=== PATIENT | male | born 1935 | race Caucasian/White ===

== ENCOUNTER 2018-02-09 07:55 | Day surgery (SDC) | payer MEDICARE ==
[~2018-02-09 07:55] MED LIST: Lidocain 1% EPI 1:100,000 * 30 ML MDV ONE
[2018-02-09] MEDS ORDERED: ceFAZolin 2 GM PREMIX (*) 2 GM/50 ML BAG IVPB ONE (08:25)
[2018-02-09] MEDS ORDERED: Lidocain 1% EPI 1:100,000 * 30 ML MDV ONE (09:00)
[2018-02-09] MEDS ORDERED: Iohexol 180 (CONTRAST) 10 ML SDV IV ONE (09:08)
[2018-02-09 09:38] VITALS: BP 127/64
--- NOTE | 2018-02-09 09:42 | BRIEFOPN ---
Brief Operative Note - Surgery Procedures: Procedures Pre-OP Diagnoses: CLL Post-op Diagnosis: same Procedure: Insertion of powerport, needle in Surgeon: Adriano Asst: none Anethesia: local EBL: minimal IVF: none Specimen: none Drains: none 8Fr single lumen power port via R SCV
--- NOTE | 2018-02-09 10:11 | RAD ---
Indication: PowerPort placement. Single frontal view of the chest performed at 0945 hours was reviewed. No prior study is available. No mediastinal shift is noted. Heart is of normal size and configuration. Lung thorne appear clear. Central catheter is in place with the tip in the superior vena cava. IMPRESSION: NO ACTIVE CARDIOPULMONARY DISEASE IS NOTED.
--- NOTE | 2018-02-09 10:21 | RAD ---
INDICATION: chest port placement COMPARISONS: None relevant TECHNIQUE: Fluoroscopy was provided for a vascular access procedure. Total fluoroscopy time is: 95.2 seconds FINDINGS: Spot images demonstrate a right-sided chest port from a subclavian approach. The tip overlies the superior vena cava. IMPRESSION: FLUOROSCOPY WAS PROVIDED FOR A VASCULAR ACCESS PROCEDURE CPT II Codes: G9500
--- NOTE | 2018-02-10 01:54 | OP ---
CC: Dr. Singleton; Dr. Neal Bain * DATE OF OPERATION: 02/09/18 - [facility] DATE OF : 37. SURGEON: Ky Oh M.D. LAB[employer]ER [employer]SE: None. ANESTHESIA: Local. PRE-OP DIAGNOSIS: Chronic lymphocytic leukemia. POST-OP DIAGNOSIS: Chronic lymphocytic leukemia. OPERATIVE PROCEDURE: Insertion of PowerPort. DRAINS: 8-Norwegian PowerPort inserted through the right subclavian vein. DESCRIPTION OF PROCEDURE: The patient was identified in the preoperative area, marked, and was brought into the operating room and placed on the operating table in supine position. The preoperative antibiotics were given. The patient 's right upper chest and neck were prepped and draped in a standard surgical fashion. A time-out was performed. The right subclavian vein was accessed. A wire inserted under fluoroscopy in the appropriate site. We did have to manipulate this somewhat to get into the inferior vena cava. Next, an incision was made inferior to the wire and a pocket was created. The wire was then brought into this incision site. Next, the tract was dilated under fluoroscopy and we had some difficulty pushing in the dilator causing significant discomfort. At this point, we removed the wire and the dilator, and there was no evidence of bleeding. Next, we accessed the vein again with ease and the wire was inserted appropriately into the superior vena cava. This was then dilated under fluoroscopy. The 8- Norwegian PowerPort tubing was inserted, cut to size, and attached to the hub, which was sutured into the pocket with 0 Prolene sutures. The wound was then irrigated and we accessed the port. Blood was aspirated easily and we flushed this with heparinized saline. We then reapproximated the skin with 3-0 Vicryl sutures followed by 4-0 Monocryl and subcuticular sutures. Steri-Strips and sterile dressing were applied. The patient tolerated the procedure well and and transferred to the PACU in stable condition. [id number]/[facility] #: [id number] [facility]
== END 2018-02-09 10:06 | disposition home or self-care (01) ==
LOC: OR 07:55
PROVIDERS: ATTEND Surgery
DX: C91.10 Chronic lymphocytic leukemia of B-cell type not having achieved remission (principal); D59.1 Other autoimmune hemolytic anemias; R91.1 Solitary pulmonary nodule; Z85.820 Personal history of malignant melanoma of skin; E11.9 Type 2 diabetes mellitus without complications; E78.5 Hyperlipidemia, unspecified; I10 Essential (primary) hypertension
CPT/HCPCS: 71045; 76000; C1788; J0690; J1642

== ENCOUNTER 2018-06-21 14:19 | Inpatient (IN) | payer MEDICARE ==
[2018-06-21] MEDS ORDERED: NS 0.9% 1000 ML* 1,000 ML IV ONE ×2 (14:35→16:54)
--- NOTE | 2018-06-21 14:36 | ED ---
Complex/Multi-Sys Presentation - HPI Summary HPI Summary: This pt is an 83 y/o male, with hx of chronic lymphocytic leukemia, presenting to [facility] after CAT call for an unresponsive episode. Daughter reports the pt had his 5th round of chemo on (06/16/18). He then had hydration session on Wednesday 4 days ago. Pt notes that yesterday he began to have nausea and vomiting. Today he had 1 episode of emesis so he called [facility] this morning and was told to come for another hydration session. He came to the hospital and upon getting out of the car, pt was standing outside when he had an unresponsive episode. Per family members during this episode pt's eyes were wide open and pt was "frozen." Pt also reports abd pain (since chemo started) and low blood pressure today (101/58 this morning, his usual is around 130 systolic. He denies fever, chest pain, SOB, diarrhea, constipation. Pt states he has had normal bowel movements. His oncologist is Dr. Bain. Denies hx of cholecystectomy. - History Of Current Complaint Chief Complaint: EDWeakness Time Seen by Provider: 06/21/18 14:24 Hx Obtained From: Patient Onset/Duration: Sudden Onset, Resolved Timing: Minutes Severity Currently: Mild Aggravating Factor(s): nothing Alleviating Factor(s): nothing Associated Signs And Symptoms: Positive: Nausea, Vomiting, Abdominal Pain, Other - POS: unresponsive episode. NEG: constipation. Negative: Dizziness, SOB , Chest Pain, Diarrhea, Fever - Allergies/Home Medications Allergies/Adverse Reactions: Allergies Allergy/AdvReac Type Severity Reaction Status Date / Time No Known Allergies Allergy Verified 02/09/18 08:17 Home Medications: Home Medications Albuterol HFA INHALER* [Ventolin HFA Inhaler*] 2 puff INH Q4H PRN 06/21/18 [ History Confirmed 06/21/18] Aspirin EC TAB* [Ecotrin EC Low Dose 81 MG*] 81 mg PO DAILY 06/21/18 [History Confirmed 06/21/18] Atorvastatin* [Lipitor*] 40 mg PO DAILY 06/21/18 [History Confirmed 06/21/18] Folic Acid TAB* [Folvite TAB*] 1 mg PO DAILY 06/21/18 [History Confirmed ] Losartan TAB* [Cozaar TAB*] 50 mg PO DAILY 06/21/18 [History Confirmed 06/21/18] Multivitamins/Minerals TAB* [Theragran/minerals TAB*] 1 tab PO DAILY 06/21/18 [ History Confirmed 06/21/18] Omeprazole CAP* [Prilosec CAP* 20 MG] 20 mg PO DAILY 06/21/18 [History Confirmed 06/21/18] PMH/Surg Hx/FS Hx/Imm Hx Endocrine/Hematology History: Reports: Hx Blood Disorders - Chronic lymphocytic leukemia, high WBC Denies: Hx Diabetes Cardiovascular History: Reports: Hx Hypercholesterolemia, Hx Hypertension Denies: Hx Congestive Heart Failure Respiratory History: Reports: Hx Asthma, Hx Pleural Effusion, Other Respiratory Problems/Disorders - thoracentesis GI History: Reports: Other GI Disorders - constipation History: Reports: Hx Benign Prostatic Hyperplasia Denies: Hx Renal Disease Sensory History: Reports: Hx Cataracts - had sx Opthamlomology History: Reports: Hx Cataracts - had sx - Cancer History Cancer Type, Location and Year: 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 Chronic Lymphocytic Leukemia 2 to 3 years ago. - Surgical History Surgery Procedure, Year, and Place: nasal polyp removed 41yrs ago; cataract removed 2014. THORACENTESIS approx 2012 Infectious Disease History: No Infectious Disease History: Denies: Traveled Outside the [place] in Last 30 Days - Family History Known Family History: Positive: Cardiac Disease, Hypertension - Social History Alcohol Use: None Substance Use Type: Reports: None Smoking Status (MU): Never Smoked Tobacco Review of Systems Negative: Fever, Chills Negative: Erythema Negative: Sore Throat Cardiovascular: Other - POS: low blood pressure Negative: Chest Pain Negative: Shortness Of Breath, Cough Positive: Abdominal Pain, Vomiting, Nausea. Negative: Diarrhea, Other - constipation Negative: dysuria, hematuria Negative: Myalgia, Edema Negative: Rash Neurological: Other - NEGATIVE: dizziness. POSITIVE: unresponsive episode All Other Systems Reviewed And Are Negative: Yes Physical Exam - Summary Physical Exam Summary: Constitutional: Well-developed, Well-nourished, Alert. (-) Distressed Skin: Warm, Dry HENT: Normocephalic; Atraumatic. Dry mucous membranes. Eyes: Conjunctiva normal Neck: Musculoskeletal ROM normal neck. (-) JVD, (-) Stridor, (-) Tracheal deviation Cardio: Rhythm regular, rate normal, Heart sounds normal; Intact distal pulses; The pedal pulses are 2+ and symmetric. Radial pulses are 2+ and symmetric. (-) Murmur Pulmonary/Chest wall: Effort normal. (-) Respiratory distress, (-) Wheezes, (-) Rales Abd: Soft, right upper quadrant tenderness, (-) Distension, (-) Guarding, (-) Rebound Musculoskeletal: (-) Edema Lymph: (-) Cervical adenopathy Neuro: Alert, Oriented x3 Psych: Mood and affect Normal Triage Information Reviewed: Yes Vital Signs On Initial Exam: Initial Vitals Temp Pulse Resp BP Pulse Ox 97.2 F 90 19 99/49 97 06/21/18 14:21 06/21/18 14:21 06/21/18 14:21 06/21/18 14:21 06/21/18 14:21 Vital Signs Reviewed: Yes Diagnostics - Vital Signs Vital Signs Temp Pulse Resp BP Pulse Ox 06/21/18 14:21 97.2 F 90 19 99/49 97 - Laboratory Result Diagrams: 06/21/18 15:05 06/21/18 15:05 Lab Statement: Any lab studies that have been ordered have been reviewed, and results considered in the medical decision making process. - Ultrasound No standard instances Ultrasound Interpretation Completed By: Radiologist Summary of Ultrasound Findings: Gallbladder US IMPRESSION: THE HETEROGENEOUS GALLBLADDER APPEARS TO BE CONTRACTED AND EXHIBITING WALL THICKENING UP. TO 1 CM WITH PERICHOLECYSTIC FLUID. THERE IS POTENTIALLY ECHOGENIC MATERIAL IN THE GALLBLADDER FUNDUS WHICH COULD BE AIR. THE PATIENT IS EXHIBITING CLINICAL SIGNS OF. CHOLECYSTITIS FURTHER CHARACTERIZATION CAN BE MADE WITH CONTRAST-ENHANCED CT OF THE ABDOMEN AND PELVIS WITH ORAL CONTRAST. FINDINGS WERE DISCUSSED WITH DR. ROMERO OF THE TELEPHONE AT 1620 HOURS ON JUNE [id number]. - EKG 14:27 Cardiac Rate: NL - at 90 bpm EKG Rhythm: Sinus Rhythm Summary of EKG Findings: No STEMI. Re-Evaluation - Re-Evaluation First Eval Re-Evaluation Time: 15:24 Change: Unchanged Comment: Pt reports that about 5 minutes ago pt developed substernal chest pressure. He states he gets this from time to time and believes it is related to indigestion. Pt notes it usually gets better with antacids and his pain is already resolving. He reports he still has RUQ pain. Second Eval Re-Evaluation Time: 16:36 Comment: Pt reports no abdominal pain earlier today. Complex Multi-Symp Course/Dx Assessment/Plan: Pt is an 83 y/o male, with hx of chronic lymphocytic leukemia, who presents to the ED after CAT call for an unresponsive episode. Daughter reports the pt had his 5th round of chemo on (06/16/18). He then had hydration session on Wednesday 4 days ago. Pt notes that yesterday he began to have nausea and vomiting. Today he had 1 episode of emesis so he called [facility] this morning and was told to come for another hydration session. Pt came to the hospital and upon getting out of the car the pt was standing outside when he had an unresponsive episode where his eyes were wide open and pt was "frozen." Pt reports abd pain (since chemo started) and low blood pressure today (101/58 this morning, his usual is around 130 systolic. He denies fever, chest pain, SOB , diarrhea, constipation. Lab results show hematocrit of 35, platelet count of 65, BUN 27, creatinine of 2.29, lactic acid of 4.5, calcium of 6.8, total bilirubin of 4.2, troponin of 0.06, AST of 2912, ALT of 3759, total protein is 3.7, albumin is 2.5, globulin is 1.2. On re-evaluation pt developed substernal chest pressure. He states he gets this from time to time and believes it is related to indigestion. Pt notes it usually gets better with antacids and his pain is already resolving. He reports he still has RUQ pain. I discussed the case with Dr. Hook, oncologist, who accepted the pt for admission. Gallbladder US shows THE HETEROGENEOUS GALLBLADDER APPEARS TO BE CONTRACTED AND EXHIBITING WALL THICKENING UP. TO 1 CM WITH PERICHOLECYSTIC FLUID. THERE IS POTENTIALLY ECHOGENIC MATERIAL IN THE GALLBLADDER FUNDUS WHICH COULD BE AIR. THE PATIENT IS EXHIBITING CLINICAL SIGNS OF. CHOLECYSTITIS FURTHER CHARACTERIZATION CAN BE MADE WITH CONTRAST-ENHANCED CT OF THE ABDOMEN AND PELVIS WITH ORAL CONTRAST. I discussed pt care with Dr. Camacho, surgeon, who recommends medical management, IV Zosyn, and MRCP. I spoke with Dr. Harris, oncologist, who recommends to order MRCP today. - Diagnoses Provider Diagnoses: Syncope, Dehydration - Physician Notifications Discussed Care Of Patient With: Tripp Hook Time Discussed With Above Provider: 15:35 Instructed by Provider To: Other - I discussed the case with Dr. Hook, oncologist, who accepted the pt for admission. [16:36] I discussed pt care with Dr. Camacho, surgeon, who recommends medical management, IV Zosyn, and MRCP. [16 :52] I also spoke with Dr. Harris, oncologist, who recommends to order MRCP today. Discharge - Sign-Out/Discharge Documenting (check all that apply): Patient Departure - Admit to [facility] - Discharge Plan Condition: Stable Disposition: ADMITTED TO [facility] Referrals: Kyra Singleton MD [Primary Care Provider] - - Attestation Statements Document Initiated by Scribe: Yes Documenting Scribe: Vivien Lyman Provider For Whom Scribe is Documenting (Include Credential): Bhaskar Romero MD Scribe Attestation: Vivien Sol, scribed for Bhaskar Romero MD on 06/21/18 at 1709. Status of Scribe Document: Ready
[2018-06-21 15:24] LABS: Hematocrit 35 % (42-52); Hemoglobin 11.6 g/dl (14.0-18.0); Mean Corpuscular HGB Conc 33 g/dl (31-36); Mean Corpuscular Hemoglobin 30 pg (27-31); Mean Corpuscular Volume 90 fL (80-94); Red Cell Distribution Width 17 % (10.5-15); White Blood Count 4.4 10^3/ul (3.5-10.8)
[2018-06-21] MEDS ORDERED: Aspirin 81 mg CHEW TAB* 81 MG TAB.CHEW PO ONE (15:43)
[2018-06-21 15:46] LABS: Albumin 2.5 g/dL (3.2-5.2); Albumin/Globulin Ratio 2.1 (1-3); BUN/Creatinine Ratio 11.8 (8-20); Calcium 6.8 mg/dL (8.6-10.3); EGFR Non-African American 27.5 (>60); Globulin 1.2 g/dL (2-4); Magnesium 2.1 mg/dL (1.9-2.7); Potassium 3.8 mmol/L (3.5-5.0); Total Bilirubin 4.2 mg/dL (0.2-1.0); Total Protein 3.7 g/dL (6.4-8.9)
[2018-06-21] MEDS ORDERED: Gaviscon CHEW TAB* 1 TAB PO ONE (15:50)
[2018-06-21 16:04] LABS: TSH (Thyroid Stimulating Horm) 0.92 mcIU/mL (0.34-5.60)
[2018-06-21 16:12] LABS: ABS Basophils 0 10^3/ul (0-0.2); ABS Eosinophils 0 10^3/ul (0-0.6); ABS Lymphocytes 0 10^3/ul (1.0-4.8); ABS Monocytes 0.3 10^3/ul (0-0.8); ABS Nucleated RBC 0 10^3/ul; Eosinophil % 0.1 %; Lymphocyte % 0.6 %; Nucleated Red Blood Cells % 0.4; Platelet Count 65 10^3/ul (150-450)
[2018-06-21] MEDS ORDERED: metroNIDAZOLE IV 500 MG/100ML* 500 MG/100 ML BAG IVPB ONE (16:33)
[2018-06-21] MEDS ORDERED: Ciprofloxacin 400MG IVPREMIX(* 400 MG/200 ML BAG IVPB ONE (16:33)
[2018-06-21] MEDS ORDERED: Piperacillin/Tazobac ADVAN(*) 3.375 GM in NS 0.9% 100 ML* 100 ML IVPB ONE ×2 (16:39→18:14)
[2018-06-21] MEDS ORDERED: Albuterol HFA INHALER* 8 gm MDI INH PRN (18:22)
[2018-06-21] MEDS ORDERED: Zosyn per Pharmacy* NOTE FOLLOW UP SCH (19:00)
[2018-06-21] MEDS: NS 0.9% 1000 ML* 1,000 ML IV SCH (19:43)
[2018-06-21] MEDS: Mometasone/Formoter 200/5 MDI INH SCH (19:53)
[2018-06-21 19:54] LABS: Indirect Bilirubin 1.6 mg/dL (0.3-1.0)
[2018-06-21] MEDS ORDERED: LORazepam INJ* 2 MG/ML 1 ML VIAL IV PUSH ONE (22:00)
[2018-06-21] MEDS: NS 0.9% 1000 ML* 2,000 ML IV ONE ×2 (22:05→23:55)
[2018-06-21] MEDS: ZOSYN 3.375 GM Q8H per EXTENDED INFUSION IVPB SCH ×2 (22:11)
[2018-06-21 23:22] LABS: Hematocrit 34 % (42-52); Hemoglobin 11.3 g/dl (14.0-18.0); Mean Corpuscular HGB Conc 33 g/dl (31-36); Mean Corpuscular Hemoglobin 30 pg (27-31); Mean Corpuscular Volume 90 fL (80-94); Mean Platelet Volume 8.6 fL (7.4-10.4); Platelet Count 54 10^3/ul (150-450); Red Blood Count 3.82 10^6/ul (4.00-5.40); Red Cell Distribution Width 18 % (10.5-15); White Blood Count 3.4 10^3/ul (3.5-10.8)
[2018-06-21 23:23] LABS: Platelet Count 54 10^3/ul (150-450)
[2018-06-21 23:32] LABS: Activated Partial Thrombo Time 92.7 seconds (26.0-36.3); Fibrinogen 126.9 mg/dL (110.8-404.3)
[2018-06-21 23:59] LABS: INR 15.93 (0.77-1.02)
--- NOTE | 2018-06-22 00:29 | PN ---
Hospitalist Progress Note Date of Service: 06/21/18 code status full pt was admitted under onc service for abd pain. adult neurologist was called closed to 10 pm when he had an episode of change of mental status in mri. when this caption writer arrived, he regained his mental status but his sbp went down from 100 to 70s and he was tachycardiac ---> pt was found to have very elevated lft to close to 3000. he was given cipro and flagyl and changed to zosyn by onc. his abd sono showed wall thickening around the gallbladder with pericholecystic fluid ct of abd showed wall thickening at transverse colon site. pt has point tenderness around the periumbilical site. he was bolused with two liter of ns but sbp went down to 70s spoke with icu dr overnight ---> may need percutaneous drainage in am once ir is available. repeat lft came back still high but this caption writer thought he already plataued at 23 pm. his lactic acid still went upwards from 4.5 to 8 and he was found to have f/s 44 bicarb went down from 20 to 14 at 4 am stat abg ordered. spoke with gi conduit helper who will see pt in am. pt has elevated lft with alt close to 300 at the end of nov ---> he might have gallbladder dz with possible associated infection which leads to hypotension and shock liver/ shock kidney. pt has been able to maintain his mental status since adult neurologist. his ct scan repeat at 4 am did not show sig change compared to prior study yesterday vital 131/55 hr 111 rr 19 temp 96.6 ( on levophed 15 mcg) general in mild distress heart s1 s2 rrr but tachycardiac lung decreased b/s at base abd + point tenderness at umbilical area as well as llq otherwise no rebound and no guarding ext no pedal edema neuro aao times nonfocal a/p 1 shock liver with shock kdiney etiology prob related to his hypotension ---> hepatal renal syndrome will his hypotension more profound - ivf along with pressors support - gi consult called overnight - only has 135 cc urine outpt will call renal for this am to eval as well 2 abd pain with gallbladder wall thickening - ir eval in am for percutaneous drainage - repeat ct abd pending - on zosyn 3 elevated lactic acid this is prob related to problem 1/2 combined - abx along with pressors 4 worsening metabolic acidosis with hypoglycemia f/s q 1 hr - d5ns ordered 5 cll hx onc called twice reg pt overall prognosis 6 elevatd trop due to his shock liver/kidney - no cp moniter pt is aao times three and wants to have everything done for now but will see his family ( and daughter at 8 am ) ---> informed onc reg this as well total critical care time overnight is 2 hours
[2018-06-22 00:37] LABS: Albumin 2.5 g/dL (3.2-5.2); Albumin/Globulin Ratio 2.1 (1-3); BUN/Creatinine Ratio 10.5 (8-20); Calcium 7.4 mg/dL (8.6-10.3); EGFR Non-African American 21.2 (>60); Globulin 1.2 g/dL (2-4); Magnesium 2.4 mg/dL (1.9-2.7); Phosphorus 5.3 mg/dL (2.5-5.0); Potassium 4.7 mmol/L (3.5-5.0); Total Bilirubin 4.6 mg/dL (0.2-1.0); Total Protein 3.7 g/dL (6.4-8.9)
[2018-06-22 01:01] LABS: Burr Cells 2+
[2018-06-22 01:02] LABS: Schistocytes ABSENT
[2018-06-22 01:19] LABS: ABS Basophils 0 10^3/ul (0-0.2); ABS Eosinophils 0 10^3/ul (0-0.6); ABS Lymphocytes 0 10^3/ul (1.0-4.8); ABS Monocytes 0.2 10^3/ul (0-0.8); ABS Neutrophils 3.2 10^3/ul (1.5-7.7); ABS Nucleated RBC 0 10^3/ul; Eosinophil % 0.1 %; Lymphocyte % 0.7 %; Nucleated Red Blood Cells % 0.3
[2018-06-22] MEDS ORDERED: NS 0.9% 1000 ML* 1,000 ML IV ONE (01:20)
[2018-06-22] MEDS: Norepinephrine VIAL* 4 MG in NS 0.9% 250 ML* 246 ML IV SCH ×5 (01:55→20:02)
[2018-06-22] MEDS: NS 0.9% 1000 ML* 1,000 ML IV SCH (02:42)
[2018-06-22 04:33] LABS: Hematocrit 36 % (42-52); Hemoglobin 11.6 g/dl (14.0-18.0); Mean Corpuscular HGB Conc 33 g/dl (31-36); Mean Corpuscular Hemoglobin 30 pg (27-31); Mean Corpuscular Volume 91 fL (80-94); Mean Platelet Volume 8.5 fL (7.4-10.4); Platelet Count 51 10^3/ul (150-450); Red Cell Distribution Width 18 % (10.5-15); White Blood Count 3.8 10^3/ul (3.5-10.8)
[2018-06-22 04:45] LABS: Albumin 2.4 g/dL (3.2-5.2); BUN/Creatinine Ratio 9.8 (8-20); Calcium 6.8 mg/dL (8.6-10.3); EGFR Non-African American 19.6 (>60); Globulin 1.2 g/dL (2-4); Magnesium 2.2 mg/dL (1.9-2.7); Phosphorus 5.7 mg/dL (2.5-5.0); Potassium 4.3 mmol/L (3.5-5.0); Total Bilirubin 4.6 mg/dL (0.2-1.0); Total Protein 3.6 g/dL (6.4-8.9)
[2018-06-22 04:46] LABS: INR 17.91 (0.77-1.02)
[2018-06-22] MEDS ORDERED: Dextrose 50% Syringe 50 ML* 25 GM/50 ML SYRINGE ONE (04:48)
[2018-06-22 05:01] LABS: Immature Granulocytes 6 % (0-9); Lymphocytes % 2 %; Metamyelocytes % 1 % (0-2); Monocytes % 3 %; Neutrophil % 89 %
[2018-06-22 05:02] LABS: Burr Cells 2+
[2018-06-22 05:04] LABS: ABS Lymphocytes 0.1 10^3/ul (1.0-4.8); ABS Monocytes 0.1 10^3/ul (0-0.8); ABS Neutrophils 3.6 10^3/ul (1.5-7.7)
[2018-06-22] MEDS ORDERED: NS 0.9% 1000 ML* 500 ML IV ONE (05:09)
[2018-06-22] MEDS: D5NS 0.9% 1000 ML BAG* 1,000 ML IV SCH ×2 (05:19→19:04)
[2018-06-22] MEDS ORDERED: Dextrose 50% Syringe 50 ML* 25 GM/50 ML SYRINGE IV PUSH ONE (05:30)
[2018-06-22 05:39] LABS: Urine Appearance Cloudy; Urine Bacteria Absent (Absent); Urine Bilirubin Negative (Negative); Urine Blood 1+ (Negative); Urine Color Amber; Urine Glucose Negative (Negative); Urine Ketones Negative (Negative); Urine Nitrite Negative (Negative); Urine Protein 1+(30 mg/dL) (Negative); Urine Red Blood Cell Trace(0-2/hpf) (Absent); Urine Specific Gravity 1.016 (1.010-1.030); Urine Urobilinogen Negative (Negative); Urine White Blood Cell Trace(0-5/hpf) (Absent)
[2018-06-22] MEDS: ZOSYN 3.375 GM Q8H per EXTENDED INFUSION IVPB SCH ×2 (06:22)
[2018-06-22] MEDS ORDERED: Phytonadione IV (Adult)* 10 MG in NS 0.9% 50 ML* 50 ML IV ONE (06:56)
[2018-06-22] MEDS: Hydrocortisone INJ* 100 MG VIAL IV SCH ×3 (07:46→19:04)
--- NOTE | 2018-06-22 07:55 | CONSULT ---
Consult Consult: PCCM Consult CC: liver failure HPI: 83M with htn, hld, asthma, bph, CLL with recent chemotherapy with bendamustine/rituximab presents with weakness. The patient was found to have abnormal lfts in the thousands range. He was admitted to the floor and a rapid response was called for ams and hypotension. The patient was transferred to the ICU. He was started on abx and iv fluids. He reports some abdmominal discomfort and had nausea prior to admission. The patient denies fever or chills. A escoto was placed with minimal urine output. Lactate was progressively increasing. His INR increased to 18 and he became hypoglycemic. He was placed on levophed for bp support. ROS - as per HPI PMHx - htn, hld, asthma, bph, cll PSHx - nasal polypectomy, cataract, thoracentesis All - nkda SocHX - no drugs, etoh, tobacco FamHx - htn, heart disease PE VS Vital Signs: Temp Pulse Resp BP Pulse Ox 97.2 F 109 19 104/64 95 06/22/18 07:30 06/22/18 07:30 06/22/18 07:30 06/22/18 07:30 06/22/18 07:30 Gen - NAD Heent - ncat, eomi, perrl neck - no jvd, no thyromegaly cv - s1/s2, tachy lungs - cta, dec bs at bases abd - soft, tenderness to deep palpation ext - no cce neuro - non-focal Labs Laboratory Results - last 24 hr 06/21/18 06/21/18 06/21/18 15:05 15:05 15:05 WBC 4.4 RBC 3.90 L Hgb 11.6 L Hct 35 L MCV 90 MCH 30 MCHC 33 RDW 17 H Plt Count 65 L MPV 9.0 Neut % (Auto) 92.5 Lymph % (Auto) 0.6 [place] % (Auto) 6.3 Eos % (Auto) 0.1 Baso % (Auto) 0.5 Absolute Neuts (auto) 4.0 Absolute Lymphs (auto) 0 L Absolute Monos (auto) 0.3 Absolute Eos (auto) 0 Absolute Basos (auto) 0 Absolute Nucleated RBC 0 Immature Gran % Neutrophils % Band Neutrophils % Lymphocytes % Monocytes % Metamyelocytes % Nucleated RBC % 0.4 Toxic Granulation Normal RBC Morphology [place] Cells Elliptocytes 1+ Acanthocytes (Spur) 3+ Schistocytes INR (Anticoag Therapy) APTT Fibrinogen D-Dimer, Quantitative ABG pH ABG pCO2 ABG pO2 ABG HCO3 ABG O2 Saturation ABG Base Excess Sodium 136 Potassium 3.8 Chloride 104 Carbon Dioxide 20 L Anion Gap 12 H BUN 27 H Creatinine 2.29 H Est GFR ( Amer) 33.3 Est GFR (Non-Af Amer) 27.5 BUN/Creatinine Ratio 11.8 Glucose 105 H POC Glucose (mg/dL) Lactic Acid Calcium 6.8 L Phosphorus Magnesium 2.1 Total Bilirubin 4.20 H Direct Bilirubin 2.60 H Indirect Bilirubin 1.60 H AST 2912 H ALT 3759 H Alkaline Phosphatase 132 H Total Creatine Kinase Troponin I 0.06 H* Total Protein 3.7 L Albumin 2.5 L Globulin 1.2 L Albumin/Globulin Ratio 2.1 Amylase 107 H Lipase 111 H TSH 0.92 Urine Color Urine Appearance Urine pH Ur Specific [place] Urine Protein Urine Ketones Urine Blood Urine Nitrate Urine Bilirubin Urine Urobilinogen Ur Leukocyte Esterase Urine WBC (Auto) Urine RBC (Auto) Urine Bacteria Urine Glucose Blood Type B Positive Antibody Screen Negative Crossmatch See Detail 06/21/18 06/21/18 06/21/18 16:10 18:38 20:48 WBC RBC Hgb Hct MCV MCH MCHC RDW Plt Count MPV Neut % (Auto) Lymph % (Auto) [place] % (Auto) Eos % (Auto) Baso % (Auto) Absolute Neuts (auto) Absolute Lymphs (auto) Absolute Monos (auto) Absolute Eos (auto) Absolute Basos (auto) Absolute Nucleated RBC Immature Gran % Neutrophils % Band Neutrophils % Lymphocytes % Monocytes % Metamyelocytes % Nucleated RBC % Toxic Granulation Normal RBC Morphology [place] Cells Elliptocytes Acanthocytes (Spur) Schistocytes INR (Anticoag Therapy) APTT Fibrinogen D-Dimer, Quantitative ABG pH ABG pCO2 ABG pO2 ABG HCO3 ABG O2 Saturation ABG Base Excess Sodium Potassium Chloride Carbon Dioxide Anion Gap BUN Creatinine Est GFR ( Amer) Est GFR (Non-Af Amer) BUN/Creatinine Ratio Glucose POC Glucose (mg/dL) Lactic Acid 4.5 H* 5.0 H* Calcium Phosphorus Magnesium Total Bilirubin Direct Bilirubin Indirect Bilirubin AST ALT Alkaline Phosphatase Total Creatine Kinase Troponin I 0.08 H* Total Protein Albumin Globulin Albumin/Globulin Ratio Amylase Lipase TSH Urine Color Urine Appearance Urine pH Ur Specific [place] Urine Protein Urine Ketones Urine Blood Urine Nitrate Urine Bilirubin Urine Urobilinogen Ur Leukocyte Esterase Urine WBC (Auto) Urine RBC (Auto) Urine Bacteria Urine Glucose Blood Type Antibody Screen Crossmatch 06/21/18 06/21/18 06/21/18 23:00 23:00 23:00 WBC 3.4 L RBC 3.82 L Hgb 11.3 L Hct 34 L MCV 90 MCH 30 MCHC 33 RDW 18 H Plt Count 54 L 54 L MPV 8.6 Neut % (Auto) 92.8 Lymph % (Auto) 0.7 [place] % (Auto) 6.1 Eos % (Auto) 0.1 Baso % (Auto) 0.3 Absolute Neuts (auto) 3.2 Absolute Lymphs (auto) 0 L Absolute Monos (auto) 0.2 Absolute Eos (auto) 0 Absolute Basos (auto) 0 Absolute Nucleated RBC 0 Immature Gran % Neutrophils % Band Neutrophils % Lymphocytes % Monocytes % Metamyelocytes % Nucleated RBC % 0.3 Toxic Granulation Normal RBC Morphology [place] Cells 2+ Elliptocytes 1+ Acanthocytes (Spur) Schistocytes Absent INR (Anticoag Therapy) 15.93 H* APTT 92.7 H Fibrinogen 126.9 D-Dimer, Quantitative 965 H ABG pH ABG pCO2 ABG pO2 ABG HCO3 ABG O2 Saturation ABG Base Excess Sodium 133 L Potassium 4.7 Chloride 100 L Carbon Dioxide 17 L Anion Gap 16 H BUN 30 H Creatinine 2.87 H Est GFR ( Amer) 25.6 Est GFR (Non-Af Amer) 21.2 BUN/Creatinine Ratio 10.5 Glucose 80 POC Glucose (mg/dL) Lactic Acid Calcium 7.4 L Phosphorus 5.3 H Magnesium 2.4 Total Bilirubin 4.60 H Direct Bilirubin Indirect Bilirubin AST 2943 H ALT 3789 H Alkaline Phosphatase 159 H Total Creatine Kinase 300 H Troponin I 0.13 H* Total Protein 3.7 L Albumin 2.5 L Globulin 1.2 L Albumin/Globulin Ratio 2.1 Amylase 121 H Lipase 118 H TSH Urine Color Urine Appearance Urine pH Ur Specific [place] Urine Protein Urine Ketones Urine Blood Urine Nitrate Urine Bilirubin Urine Urobilinogen Ur Leukocyte Esterase Urine WBC (Auto) Urine RBC (Auto) Urine Bacteria Urine Glucose Blood Type Antibody Screen Crossmatch 06/21/18 06/22/18 06/22/18 23:00 04:12 04:12 WBC 3.8 RBC 3.90 L Hgb 11.6 L Hct 36 L MCV 91 MCH 30 MCHC 33 RDW 18 H Plt Count 51 L MPV 8.5 Neut % (Auto) Not Reportable Lymph % (Auto) Not Reportable [place] % (Auto) Not Reportable Eos % (Auto) Not Reportable Baso % (Auto) Not Reportable Absolute Neuts (auto) 3.6 Absolute Lymphs (auto) 0.1 L Absolute Monos (auto) 0.1 Absolute Eos (auto) Not Reportable Absolute Basos (auto) Not Reportable Absolute Nucleated RBC Not Reportable Immature Gran % 6 Neutrophils % 89 Band Neutrophils % 5 Lymphocytes % 2 Monocytes % 3 Metamyelocytes % 1 Nucleated RBC % Not Reportable Toxic Granulation 1+ Normal RBC Morphology Not Reportable [place] Cells 2+ Elliptocytes Acanthocytes (Spur) Schistocytes INR (Anticoag Therapy) APTT Fibrinogen D-Dimer, Quantitative ABG pH ABG pCO2 ABG pO2 ABG HCO3 ABG O2 Saturation ABG Base Excess Sodium 134 L Potassium 4.3 Chloride 104 Carbon Dioxide 14 L* Anion Gap 16 H BUN 30 H Creatinine 3.07 H Est GFR ( Amer) 23.7 Est GFR (Non-Af Amer) 19.6 BUN/Creatinine Ratio 9.8 Glucose 44 L* POC Glucose (mg/dL) Lactic Acid 6.4 H* Calcium 6.8 L Phosphorus 5.7 H Magnesium 2.2 Total Bilirubin 4.60 H Direct Bilirubin Indirect Bilirubin AST 2804 H ALT 3627 H Alkaline Phosphatase 162 H Total Creatine Kinase Troponin I 0.16 H* Total Protein 3.6 L Albumin 2.4 L Globulin 1.2 L Albumin/Globulin Ratio 2.0 Amylase Lipase TSH Urine Color Urine Appearance Urine pH Ur Specific [place] Urine Protein Urine Ketones Urine Blood Urine Nitrate Urine Bilirubin Urine Urobilinogen Ur Leukocyte Esterase Urine WBC (Auto) Urine RBC (Auto) Urine Bacteria Urine Glucose Blood Type Antibody Screen Crossmatch 06/22/18 06/22/18 06/22/18 04:12 04:12 05:10 WBC RBC Hgb Hct MCV MCH MCHC RDW Plt Count MPV Neut % (Auto) Lymph % (Auto) [place] % (Auto) Eos % (Auto) Baso % (Auto) Absolute Neuts (auto) Absolute Lymphs (auto) Absolute Monos (auto) Absolute Eos (auto) Absolute Basos (auto) Absolute Nucleated RBC Immature Gran % Neutrophils % Band Neutrophils % Lymphocytes % Monocytes % Metamyelocytes % Nucleated RBC % Toxic Granulation Normal RBC Morphology [place] Cells Elliptocytes Acanthocytes (Spur) Schistocytes INR (Anticoag Therapy) 17.91 H* APTT Fibrinogen D-Dimer, Quantitative ABG pH ABG pCO2 ABG pO2 ABG HCO3 ABG O2 Saturation ABG Base Excess Sodium Potassium Chloride Carbon Dioxide Anion Gap BUN Creatinine Est GFR ( Amer) Est GFR (Non-Af Amer) BUN/Creatinine Ratio Glucose POC Glucose (mg/dL) Lactic Acid 8.2 H* Calcium Phosphorus Magnesium Total Bilirubin Direct Bilirubin Indirect Bilirubin AST ALT Alkaline Phosphatase Total Creatine Kinase Troponin I Total Protein Albumin Globulin Albumin/Globulin Ratio Amylase Lipase TSH Urine Color [place] Urine Appearance Cloudy Urine pH 5.0 Ur Specific [place] 1.016 Urine Protein 1+(30 mg/dl) A Urine Ketones Negative Urine Blood 1+ A Urine Nitrate Negative Urine Bilirubin Negative Urine Urobilinogen Negative Ur Leukocyte Esterase Negative Urine WBC (Auto) Trace(0-5/hpf) Urine RBC (Auto) Trace(0-2/hpf) Urine Bacteria Absent Urine Glucose Negative Blood Type Antibody Screen Crossmatch 06/22/18 06/22/18 06/22/18 05:10 05:16 06:09 WBC RBC Hgb Hct MCV MCH MCHC RDW Plt Count MPV Neut % (Auto) Lymph % (Auto) [place] % (Auto) Eos % (Auto) Baso % (Auto) Absolute Neuts (auto) Absolute Lymphs (auto) Absolute Monos (auto) Absolute Eos (auto) Absolute Basos (auto) Absolute Nucleated RBC Immature Gran % Neutrophils % Band Neutrophils % Lymphocytes % Monocytes % Metamyelocytes % Nucleated RBC % Toxic Granulation Normal RBC Morphology [place] Cells Elliptocytes Acanthocytes (Spur) Schistocytes INR (Anticoag Therapy) APTT Fibrinogen D-Dimer, Quantitative ABG pH 7.28 L ABG pCO2 21 L ABG pO2 109 H ABG HCO3 13.2 L ABG O2 Saturation 98.9 H ABG Base Excess -15.0 L Sodium Potassium Chloride Carbon Dioxide Anion Gap BUN Creatinine Est GFR ( Amer) Est GFR (Non-Af Amer) BUN/Creatinine Ratio Glucose POC Glucose (mg/dL) 111 H 113 H Lactic Acid Calcium Phosphorus Magnesium Total Bilirubin Direct Bilirubin Indirect Bilirubin AST ALT Alkaline Phosphatase Total Creatine Kinase Troponin I Total Protein Albumin Globulin Albumin/Globulin Ratio Amylase Lipase TSH Urine Color Urine Appearance Urine pH Ur Specific [place] Urine Protein Urine Ketones Urine Blood Urine Nitrate Urine Bilirubin Urine Urobilinogen Ur Leukocyte Esterase Urine WBC (Auto) Urine RBC (Auto) Urine Bacteria Urine Glucose Blood Type Antibody Screen Crossmatch Imaging RUQ Sono 06/21/18 IMPRESSION: THE HETEROGENEOUS GALLBLADDER APPEARS TO BE CONTRACTED AND EXHIBITING WALL THICKENING UP TO 1 CM WITH PERICHOLECYSTIC FLUID. THERE IS POTENTIALLY ECHOGENIC MATERIAL IN THE GALLBLADDER FUNDUS WHICH COULD BE AIR. THE PATIENT IS EXHIBITING CLINICAL SIGNS OF CHOLECYSTITIS FURTHER CHARACTERIZATION CAN BE MADE WITH CONTRAST-ENHANCED CT OF THE ABDOMEN AND PELVIS WITH ORAL CONTRAST. CT abd/pel 06/21/18 IMPRESSION: Wall thickening of the transverse and ascending colon, findings concerning for colitis. Etiology infectious/inflammatory. Significant decrease in the abdominal lymphadenopathy. Most lymph nodes measuring less than [address] axis[address] abd/pel 06/21/18 IMPRESSION: 1. Minimal right pleural effusion and trace left pleural effusion which are new or increased since 06/21/2018. There is trace pericardial effusion which is similar to slightly increased. 2. Trace peritoneal ascites which is slightly increased. 3. Wall thickening of the gastric antrum and pylorus which is similar to the prior study and may reflect antral gastritis or PUD. 4. Nonspecific pancolitis, greatest proximally which is similar to the prior study. 5. Contracted gallbladder with wall thickening and mild internal density which may reflect sludge or small faint stones and is similar to the prior study. 6. Induration of the central mesentery and mesenteric root which is mildly increased overall. Findings may reflect increasing generalized anasarca or fluid overload. Impression 83M with htn, hld, asthma, bph, cll presenting with multiorgan system failure, shock 2/2 acute liver failure from chemo vs sepsis from cholecystitis Plan Neuro - pain control - not currently showing any signs of encephalopathy CV - shock, elevated troponin - 2/2 acute liver failure vs sepsis - iv hydration - levophed/vaso for bp support - elevated troponin 2/2 demand - check tte pulm - oxygenating ok id - septic shock - 2/2 cholecysititis? - afebrile and normal wbc but did receive recent chemo - cultures pending - on empiric zosyn - will discuss with IR about perc nohelia - serial lactates gi - shock liver - 2/2 drug reaction vs hypotension from sepsis - discussed with Dr. Smith from ICU at [facility], patient not a transplant candidate given age and underlying malignancy - no ICU beds at [facility] renal - acute renal failure - minimal urine output since arrival - consult called to nephrology - if needs HD would need transfer to Center that does CRRT - monitor lytes - strict i/o Heme - coagulopathy, CLL - 2/2 liver failure - PCC for INR reversal prior to per nohelia - CLL management per onc - serial CBC Endo - hypoglycemia - 2/2 liver failure - d5ns - fs q2h Lines - port, piv, escoto PPx - gi/dvt DNR/DNI Critical Care Time: 120 mins
[2018-06-22] MEDS ORDERED: Vasopressin* 100 UNITS in D5W 250 ML BAG* 245 ML IVPB SCH (08:00)
[2018-06-22] MEDS: Mometasone/Formoter 200/5 MDI INH SCH ×2 (08:26→19:11)
[2018-06-22 08:49] LABS: Hematocrit 41 % (42-52); Hemoglobin 13.2 g/dl (14.0-18.0); Mean Corpuscular HGB Conc 32 g/dl (31-36); Mean Corpuscular Hemoglobin 30 pg (27-31); Mean Corpuscular Volume 93 fL (80-94); Mean Platelet Volume 8.3 fL (7.4-10.4); Platelet Count 51 10^3/ul (150-450); Red Blood Count 4.45 10^6/ul (4.00-5.40); Red Cell Distribution Width 18 % (10.5-15); White Blood Count 5.2 10^3/ul (3.5-10.8)
[2018-06-22] MEDS ORDERED: Pantoprazole IV* 40 MG IV SCH (09:00)
[2018-06-22] MEDS ORDERED: Tamsulosin CAP* 0.4 MG PO SCH (09:00)
[2018-06-22 09:09] LABS: Albumin 2.7 g/dL (3.2-5.2); Albumin/Globulin Ratio 2.1 (1-3); BUN/Creatinine Ratio 9.4 (8-20); Calcium 6.8 mg/dL (8.6-10.3); EGFR Non-African American 18.8 (>60); Globulin 1.3 g/dL (2-4); Indirect Bilirubin 2.3 mg/dL (0.3-1.0); Magnesium 2.2 mg/dL (1.9-2.7); Phosphorus 5.8 mg/dL (2.5-5.0); Potassium 4.5 mmol/L (3.5-5.0); Total Bilirubin 5.8 mg/dL (0.2-1.0)
[2018-06-22 09:12] LABS: ABS Basophils 0 10^3/ul (0-0.2); ABS Eosinophils 0.1 10^3/ul (0-0.6); ABS Lymphocytes 0 10^3/ul (1.0-4.8); ABS Monocytes 0.5 10^3/ul (0-0.8); ABS Neutrophils 4.6 10^3/ul (1.5-7.7); ABS Nucleated RBC 0 10^3/ul; Eosinophil % 1.7 %; Lymphocyte % 0.4 %; Nucleated Red Blood Cells % 0.4
[2018-06-22] MEDS ORDERED: Gaviscon CHEW TAB* 1 TAB PO PRN (09:27)
[2018-06-22 11:05] LABS: INR 19.19 (0.77-1.02)
[2018-06-22] MEDS ORDERED: Albumin Human 25%* 25 GM/100 ML BTL IV SCH (12:00)
[2018-06-22] MEDS ORDERED: Benzocaine/Menthol LOZ* 1 LOZENGE PO PRN (12:19)
[2018-06-22 12:38] LABS: INR 2.19 (0.77-1.02)
[2018-06-22] MEDS ORDERED: Perflutren Lipid Microsphere* 3 ML VIAL ONE (13:28)
[2018-06-22] MEDS ORDERED: Sodium Bicarbonate 8.4%* 50 ML SYRINGE IV ONE (14:26)
--- NOTE | 2018-06-22 14:42 | ECHO ---
Patient: [facility] Rec#: [id number] : 1935 Date: 06/22/2018 Age: 83y Height: 170 cm / 66.9 in Weight: 84 kg / 185.1 lbs Sex: M BSA: 1.96 Room#: ICU 1 Admit Date#: 06/21/2018 Type: Inpatient Referring: Jae Martin DO Reading: Constance Krishna MD Marketing Reporting Analyst: Adelaide Palm RDCS,RDMS CC: Kyra Singleton MD Transthoracic Echocardiogram Indication: CP, Syncope BP: 105/52 HR: 92 Rhythm: NSR Findings History: HTN, HLD, CLL, chemotherapy Technical Comments: The study is technically limited due to poor acoustic windows. Left Ventricle: The left ventricular chamber size is normal. Mild concentric left ventricular hypertrophy is observed. Global left ventricular wall motion and contractility are within normal limits. The left ventricle appears hyperdynamic. The estimated ejection fraction is 60-65%. Normal left ventricular diastolic filling is observed. Left Atrium: The left atrial chamber size is normal. Right Ventricle: The right ventricular chamber size and systolic function are within normal limits. Right Atrium: The right atrial cavity size is normal. Aortic Valve: The aortic valve is trileaflet. The aortic valve leaflets are mildly thickened. Systolic excursion of the aortic valve is normal. There is no evidence of aortic regurgitation. There is no evidence of aortic stenosis. Mitral Valve: The mitral valve leaflets do not appear thickened. There is no evidence of mitral regurgitation. There is no evidence of mitral stenosis. Tricuspid Valve: The tricuspid valve leaflets are normal. There is no evidence of tricuspid valve regurgitation. Unable to estimate the right ventricular systolic pressure. Pulmonic Valve: The pulmonic valve structure is not well visualized. There is no evidence of pulmonic regurgitation. Pericardium: There is no significant pericardial effusion.Small amount of fluid adjacent to the right atrium at the base. Aorta: The aortic root appears normal. The aortic arch is not well visualized. Pulmonary Artery: The main pulmonary artery is not well visualized. Venous: The inferior vena cava is not visualized. Contrast: Definity was used to optimize study. A total of 2 ml was given by patient's RN. Conclusions Mild concentric left ventricular hypertrophy is observed. Global left ventricular wall motion within normal limits. The left ventricle appears hyperdynamic. The estimated ejection fraction is 60-65%. Normal left ventricular diastolic filling is observed. The right ventricular chamber size and systolic function are within normal limits. The aortic valve leaflets are mildly thickened with normal function. All valves show good function. There is no significant pericardial effusion, small amount of fluid adjacent to the right atrium at the base. No prior echo to compare. Measurements Name Value Normal Range RVIDd (AP) 2D 3.3 cm (0.9 - 2.6) RAd ISD 4CH 4.5 cm (3.4 - 4.9) RA (A4C)W 3.3 cm (2.9 - 4.6) IVSd (2D) 1.3 cm (0.6 - 1) LVPWd (2D) 1.3 cm (0.6 - 1) LVIDd (2D) 3.6 cm (3.6 - 5.4) LVIDs (2D) 2.4 cm - LV FS (2D) 34 % (25 - 45) Aortic Annulus 2.3 cm (1.4 - 2.6) Ao root diameter (2D) 3.2 cm (2.1 - 3.5) Ascending Ao 3 cm (2.1 - 3.4) LA dimension (AP) 2D 3.2 cm (2.3 - 3.8) LAd ISD 4CH 5.1 cm (2.9 - 5.3) LA ISD 4CH W 3.9 cm (2.5 - 4.5) Name Value Normal Range MV E-wave Vmax 0.5 m/sec - MV deceleration time 187 msec - MV A-wave Vmax 0.8 m/sec - MV E:A ratio 0.7 ratio - LV septal e' Vmax 0.06 m/sec - LV lateral e' Vmax 0.08 m/sec - LV E:e' septal ratio 8 ratio - LV E:e' lateral ratio 6 ratio - Name Value Normal Range RAP 8 mmHg - Name Value Normal Range PV Vmax 1 m/sec - PV peak gradient 4 mmHg -
[2018-06-22] MEDS ORDERED: ACETYLCYSTEINE IVPB ONE ×4 (15:00→20:00)
[2018-06-22] MEDS ORDERED: D5W IVPB ONE ×4 (15:00→20:00)
[2018-06-22] MEDS ORDERED: Vancomycin(*) 1,000 MG in NS 0.9% 250 ML* 250 ML IVPB ONE (15:01)
[2018-06-22] MEDS ORDERED: Morphine VIAL* 4 MG/ML VIAL (1 ml vial) IV PRN (15:01)
--- NOTE | 2018-06-22 15:21 | PN ---
Sepsis Event Evaluation Date of Evaluation: 06/22/18 Time of Evaluation: 12:00 Current Stage of Sepsis: Septic Shock Vital Signs - Last 12 Hours: Vital Signs - 12 hr Temp Pulse Resp BP Pulse Ox 06/22/18 15:01 99.0 F 97 28 97 06/22/18 15:00 99.0 F 98 19 113/56 96 06/22/18 14:45 99.1 F 104 29 108/68 93 06/22/18 14:40 99.1 F 97 26 109/66 94 06/22/18 14:30 99.0 F 97 27 117/56 94 06/22/18 14:24 99.0 F 97 22 99/63 94 06/22/18 14:15 99.0 F 95 24 101/52 95 06/22/18 14:01 99.0 F 96 4 95 06/22/18 14:00 99.0 F 96 15 127/64 94 06/22/18 13:45 98.8 F 93 23 120/60 95 06/22/18 13:30 98.8 F 94 13 121/53 94 06/22/18 13:15 98.6 F 90 12 121/62 96 06/22/18 13:01 98.4 F 88 22 94/61 96 06/22/18 13:00 98.4 F 14 06/22/18 12:45 98.4 F 87 18 114/54 96 06/22/18 12:30 98.4 F 87 20 103/60 96 06/22/18 12:16 98.2 F 88 16 99/56 97 06/22/18 12:01 98.2 F 87 21 96 06/22/18 12:00 98.2 F 83 19 105/52 96 06/22/18 11:45 98.2 F 88 16 102/65 96 06/22/18 11:30 98.1 F 89 22 115/57 97 06/22/18 11:15 98.1 F 90 20 103/70 96 06/22/18 11:01 98.1 F 94 21 120/54 96 06/22/18 11:00 98.1 F 93 17 96 06/22/18 10:46 98.1 F 90 23 118/46 96 06/22/18 10:30 97.9 F 93 24 132/67 96 12/12/18 10:15 97.9 F 89 18 111/58 98 06/22/18 10:01 97.7 F 91 24 98 18 10:00 97.7 F 91 22 133/77 98 18 09:46 97.7 F 92 16 128/67 99 12/18 09:30 97.5 F 91 27 136/68 99 12/18 09:15 97.5 F 91 22 145/68 98 18 09:01 97.5 F 88 24 98 18 09:00 97.5 F 91 21 124/75 99 18 08:46 97.3 F 91 20 127/65 99 18 08:15 97.3 F 104 22 98/54 98 06/22/18 08:01 97.3 F 104 18 99 06/22/18 08:00 97.3 F 102 25 87/49 98 06/22/18 07:45 97.3 F 107 17 82/43 99 06/22/18 07:30 97.2 F 109 19 104/64 95 06/22/18 07:15 97.0 F 108 19 97/55 99 06/22/18 07:01 97.0 F 108 16 98 06/22/18 07:00 97.0 F 104 20 121/60 99 06/22/18 06:46 96.8 F 107 16 114/88 100 06/22/18 06:30 96.8 F 110 19 149/69 99 18 06:15 96.8 F 109 20 135/63 99 06/22/18 06:01 96.6 F 112 29 141/67 98 06/22/18 06:00 112 21 98 18 05:45 113 22 136/60 98 18 05:30 111 19 131/55 99 18 05:15 107 20 132/57 100 18 05:05 106 18 105/51 99 06/22/18 05:00 102 16 98 18 04:58 15 06/22/18 04:56 102 14 86/36 96 18 04:05 100 22 86/43 97 06/22/18 04:02 99 21 96 06/22/18 04:01 98 31 60/35 95 06/22/18 04:00 97 20 63/34 93 06/22/18 03:46 97.6 F 06/22/18 03:45 104 16 71/51 97 06/22/18 03:30 113 26 82/43 96 Lactic Acid: 06/21/18 06/21/18 06/21/18 16:10 20:48 23:00 Lactic Acid 4.5 H* 5.0 H* 6.4 H* 06/22/18 06/22/18 04:12 08:31 Lactic Acid 8.2 H* 9.6 H* - Cardiopulmonary Exam Capillary Refill: < or = to 5 seconds Respiratory: Symmetrical Chest Expansion and Respiratory Effort, Clear to Auscultation Cardiovascular: NL Sounds; No Murmurs; No JVD, RRR, No Edema - Peripheral Pulse Exam Radial Pulses: Bilateral Normal Pedal Pulses: Bilateral Normal Posterior Tibial Pulse: Bilateral Normal Femoral Pulses: Bilateral Normal Popliteal Pulses: Bilateral Normal - Skin Exam Skin Exam: Diaphoretic - [place] Coma Scale Best Eye Response: 4 - Spontaneous Best Motor Response: 6 - Obeys Commands Best Verbal Response: 5 - Oriented Coma Scale Total: 15 Assess/Plan/Problems-Billing Assessment:
[2018-06-22 15:47] LABS: ABS Neutrophils 3.6 10^3/ul (1.5-7.7); Hematocrit 35 % (42-52); Hemoglobin 11.3 g/dl (14.0-18.0); INR 2.36 (0.77-1.02); Mean Corpuscular HGB Conc 32 g/dl (31-36); Mean Corpuscular Hemoglobin 29 pg (27-31); Mean Corpuscular Volume 91 fL (80-94); Mean Platelet Volume 8.2 fL (7.4-10.4); Platelet Count 39 10^3/ul (150-450); Red Blood Count 3.86 10^6/ul (4.00-5.40); Red Cell Distribution Width 17 % (10.5-15)
[2018-06-22 16:00] LABS: Albumin 2.5 g/dL (3.2-5.2); Albumin/Globulin Ratio 2.1 (1-3); BUN/Creatinine Ratio 8.6 (8-20); Calcium 6.5 mg/dL (8.6-10.3); EGFR Non-African American 16.3 (>60); Globulin 1.2 g/dL (2-4); Indirect Bilirubin 2.1 mg/dL (0.3-1.0); Magnesium 2.2 mg/dL (1.9-2.7); Phosphorus 5.9 mg/dL (2.5-5.0); Potassium 5.1 mmol/L (3.5-5.0); Total Bilirubin 5.4 mg/dL (0.2-1.0); Total Protein 3.7 g/dL (6.4-8.9)
[2018-06-22 17:13] LABS: ABS Basophils 0 10^3/ul (0-0.2); ABS Eosinophils 0.1 10^3/ul (0-0.6); ABS Lymphocytes 0 10^3/ul (1.0-4.8); ABS Monocytes 0.2 10^3/ul (0-0.8); ABS Nucleated RBC 0 10^3/ul; Eosinophil % 1.7 %; Lymphocyte % 0.8 %; Nucleated Red Blood Cells % 0.1
[2018-06-22] MEDS ORDERED: fentaNYL* 50 MCG/ML 2 ML VIAL (100 MCG VIAL) IV SLOW PU ONE (17:27)
[2018-06-22] MEDS ORDERED: fentaNYL* 50 MCG/ML 2 ML VIAL (100 MCG VIAL) ONE (17:28)
[2018-06-22] MEDS ORDERED: ZOSYN 3.375 GM Q12H per EXTENDED INFUSION IVPB SCH ×2 (18:00)
--- NOTE | 2018-06-22 18:01 | PN ---
Progress Note - Progress Note Date of Service: 06/22/18 Note: [facility] Follow Up Patient is s/p ultrasound guided gallbladder FNA by IR. Fluid obtained appeared to be bile without any obvious purulence making sepsis secondary to cholecystitis unlikely. Fluid was sent for culture. I updated the patient and his family at bedside about his overall poor prognosis given the severity of his liver and renal failure. They are discussing whether to withdraw care or to continue medical management. He is DNR/DNI. Case discussed with Dr. Bain via telephone. Additional Critical Care Time: 45 mins
--- NOTE | 2018-06-22 18:54 | PN ---
Progress Note - Progress Note Date of Service: 06/22/18 SOAP: Subjective: []He is not in pain. Answering questions. Nausea is better. Al Hydroxide/Mg Trisilicate (Gaviscon Chew Tab*) 1 tab.chew PO Q6H PRN PRN Reason: gerd Last Admin: 06/22/18 10:59 Dose: 1 tab.chew Albuterol (Ventolin Hfa Inhaler*) 2 puff INH Q4H PRN PRN Reason: SHORTNESS OF BREATH Hydrocortisone Sodium Succinate (Solu-Cortef*) 50 mg IV Q6H [facility] Last Admin: 06/22/18 14:36 Dose: 50 mg Norepinephrine Bitartrate 4 mg (/ Sodium Chloride) 250 mls @ 18.75 mls/hr IV Q12H [facility]; Protocol Last Admin: 06/22/18 14:45 Dose: Not Given Dextrose/Sodium Chloride (D5ns 0.9% 1000 Ml Bag*) 1,000 mls @ 100 mls/hr IV PER RATE [facility] Last Admin: 06/22/18 05:19 Dose: 100 mls/hr Vasopressin 100 units/ (Dextrose) 250 mls @ 6 mls/hr IVPB Q24H [facility] Last Admin: 06/22/18 08:05 Dose: 6 mls/hr Piperacillin Sod/Tazobactam (Sod 3.375 gm/ Sodium Chloride) 100 mls @ 25 mls/ hr IVPB Q12H [facility] Last Admin: 06/22/18 18:20 Dose: 25 mls/hr Albumin Human (Albumin Human 25%*) 25 gm in 100 mls @ 120 mls/hr IV Q8H [facility] Stop: 06/23/18 11:59 Last Admin: 06/22/18 14:35 Dose: 120 mls/hr Acetylcysteine 4,000 mg/ (Dextrose) 520 mls @ 125 mls/hr IVPB ONCE ONE Stop: 06/22/18 20:09 Last Admin: 06/22/18 17:00 Dose: 125 mls/hr Acetylcysteine 8,000 mg/ (Dextrose) 1,040 mls @ 62.5 mls/hr IVPB 2000 ONE Stop: 06/23/18 12:38 Mometasone Furoate/Formoterol Fumar (Dulera 200/5 Mdi*) 2 puff INH BID REDDY; Protocol Last Admin: 06/22/18 08:26 Dose: 2 puff Morphine Sulfate (Morphine Vial*) 1 mg IV Q2H PRN PRN Reason: PAIN Last Admin: 06/22/18 15:36 Dose: 1 mg Pantoprazole Sodium (Protonix Iv*) 40 mg IV DAILY REDDY Last Admin: 06/22/18 09:49 Dose: 40 mg Pharmacy Consult (Zosyn Per Pharmacy*) 1 note FOLLOW UP .ZOSYN PER PHARMACY [facility] Throat Lozenges (Chloraseptic Nadiya*) 1 nadiya PO Q6H PRN PRN Reason: SORE THROAT Objective: [] Vital Signs Temp Pulse Resp BP Pulse Ox 98.2 F 93 17 124/58 97 06/22/18 18:01 06/22/18 18:01 06/22/18 18:01 06/22/18 18:00 06/22/18 18:01 HEENT - scleral icterus High flow oxygen, CTA RRR S1S2 Abd distended but non tender, cannot feel liver edge Ext cool, no edema anuric Labs: Cr 3.6, increased LA 10.5, increased TBili 5.4, down slightly AST/ALT 2719/3475, down slightly GB drain, no puss. Assessment: []83 year old with fulminant liver failure likely second to bendamustine. He has concurrent ARF from HRS or hypotension. Now on dule presser support, steriods, and receiving FFP. Met with patient and family this am and tonight. Likely will from event, liver may not recover. He is stable at this time with intensive support. I think it is worth continuing support overnight is he remains stable. Agree with DNR DNI. If in morning liver function continues to decline the withdrawal of care is appropriate. Plan: []1. Liver. Continue supportive care tonight and will follow up with blood work in am. 2. Renal. - ATN from hypovolimic shock - Metabolic acidosis from ARF and CUSTODIAL. - No HD but stable at this time. 3. Pulm. High flow oxygen, fluid overload or ARDS 4. CV. Duel presser support, continue for time being, titrate to MAP 5. Neuro. Intact MS, oriented at this time 6. DNR DNI
--- NOTE | 2018-06-22 20:31 | CONS ---
NEPHROLOGY CONSULTATION REPORT: DATE OF CONSULT: 06/22/18 REQUESTING PROVIDER: Dr. Martin/vice president regulatory. CHIEF COMPLAINT: Feeling poorly, weakness, nausea, vomiting/acute renal failure. HISTORY OF PRESENT ILLNESS: An 83-year-old male with history of CLL, on bendamustine and rituximab treatment, who has completed 5 cycles so far, last chemo on 06/16/18/06/17/18, came into the hospital for evaluation of weakness, some lethargy and nausea. The patient also reported lack of appetite and had syncopal episode in the parking lot and was brought to the ER for evaluation. In the ER, the patient was noted to have extremely elevated liver function test , was noted to be hypotensive with initial blood pressures in the 70s with further serial blood pressures in the 60s, was admitted to the ICU and being stabilized on pressors. The patient has also received 6.5 L and IV fluids by this morning. The patient noted to be awake and alert and communicating, but continues to require pressor support at this time. With respect to his kidney, the patient does not have any known history of kidney disease. Baseline renal function significant for a creatinine of 1.0. The patient's initial creatinine on admission noted to be in the 2 range and has climbed up to a creatinine of 3 at this time. The patient's urine output has also decreased significantly and the patient has only made 5 cc in the last hour of evaluation this morning. The patient noted to have elevated lactate that is climbing. Interestingly, the patient did not have any fever at home. PAST MEDICAL HISTORY: 1. CLL 13q. Please refer to the Oncology notes for detailed description. 2. BPH. 3. Asthma. 4. Hyperlipidemia. 5. Hypertension. PAST SURGICAL HISTORY: 1. Nasal polypectomy. 2. Cataract. 3. Thoracentesis. MEDICATIONS: Medication list reviewed in detail: 1. The patient is on Zosyn 3.375 IV q.12. 2. Levophed currently at 15 mcg. 3. Morphine p.r.n. for pain. 4. Stress dose steroids hydrocortisone 50 IV q.6. FAMILY HISTORY: Hypertension and heart disease in the family. No known family history of kidney disease. SOCIAL HISTORY: The patient does not smoke or consume alcohol. No use of recreational drugs. REVIEW OF SYSTEMS: As described in the HPI, the patient reports some nausea, fatigue and some abdominal pain. Denies any chest pain, shortness of breath, or other complaints. A 14-point review of systems reviewed and others noted to be negative at this time. PHYSICAL EXAM: Vitals: Temperature 97.2, pulse 109, respirations 19, blood pressure 104/64 on pressors, pulse ox 95%. HEENT: NC/AT. Heart: S1, S2 present. Regular, but tachycardic at the time of exam. Lungs: Decreased breath sounds bilaterally. No crackles noted on exam. Abdomen: Soft, obese, tenderness to deep palpation diffusely. Extremities: Noted to have no edema. Neuro: Alert and oriented. No focal deficits. Gait not tested. DIAGNOSTIC STUDIES/LAB DATA: WBC 4.4, hemoglobin 16.6, hematocrit 35, platelets noted to be 65. Sodium 136, potassium 3.8, chloride 104, CO2 20, BUN 27, initial creatinine 2.29 increased to 3, lactic acid noted to be trending up and at 9.6 this morning. Imaging: The patient's gallbladder ultrasound and CT of the abdomen and pelvis has been reviewed. ASSESSMENT AND PLAN: An 83-year-old male with history of chronic lymphocytic leukemia with recent chemotherapy with bendamustine and Rituxan, here with possible septic shock and acute kidney injury and shocked liver. 1. Acute kidney injury. Likely etiology is acute tubular necrosis in the setting of hypoperfusion, ischemic acute tubular necrosis is most likely as the patient's blood pressure dropped to the 60s and 70s. The patient also noted to be in the injury phase of acute tubular necrosis with rising creatinine. The patient's urine output has also steadily decreased and the patient has only made 5 cc of urine in the last hour. Agree with supportive measures and pressors to keep his MAP above 65 to improve renal perfusion. The patient's renal function may worsen further before it improves as the patient continues to be in the injury phase of acute tubular necrosis. If the patient's renal function continues to decline before it improves, the patient may require renal replacement therapy in the next 72 hours. The patient does not have any emergent indications for dialysis. This morning, the patient's potassium noted to be in the 4 range; however, if the patient continues to make no urine, the patient may develop indications for dialysis. Unfortunately, the patient would not be able to tolerate routine hemodialysis on pressor support. The patient would need to be transferred to another center for CRRT/CVVH, will follow the patient closely with ICU team. 2. Metabolic acidosis secondary to lactic acidosis. This appears to be secondary to hypoperfusion. type B lactic acidosis secondary to the patient's chemotherapy is possible, but the patient has clearly been hypotensive and the lactate likely from hypoperfusion in the setting of shock. 3. The etiology of the patient's shock and shocked liver with significantly elevated LFTs, liver injury could possibly be from chemotherapy versus infection. Agree with broad-spectrum antibiotics per the ICU team and further treatment by Oncology. Also agree with products to stabilize his INR. The patient's INR noted to be 17 this morning and the patient has received vitamin K and Kcentra. A cholecystostomy tube to drain the gallbladder which could possibly be source of infection is also being evaluated. 4. We will follow closely with the ICU and oncology service. Thank you for giving me an opportunity to participate in caring for this patient. [id number]/[facility] #: [id number] JOANNA
--- NOTE | 2018-06-22 20:41 | CONS ---
GASTROENTEROLOGY CONSULT REPORT: DATE OF CONSULT: 06/22/18 REASON FOR CONSULT: Concern for liver failure. HISTORY OF PRESENT ILLNESS: Mr. Porter is an 83-year-old gentleman with a history of chronic lymphocytic leukemia, on chemotherapy with bendamustine and rituximab, who is admitted with hypotension and now concern for liver failure. Some history provided by the patient and the patient's . The remainder of history obtained from chart review. Mr. Porter had last round of chemotherapy on , 06/16/18. He was given IV hydration on Wednesday. It seems that earlier in the week he developed some nausea and vomiting. He also had an episode of being unresponsive to family members. Noted to have hypotension relative to his baseline. Taken to the ER for evaluation. In the ER, the patient on initial assessment was noted to have a blood pressure of 99/49. Apparently, his normal blood pressure is more in the 130 systolic range. Labs notable for a creatinine of 2.29, AST 2912, ALT 3759, bilirubin of 4.2, lactic acid of 4.5. He complained of right upper quadrant pain and an ultrasound demonstrated contracted gallbladder with wall thickening and pericholecystic fluid. Followup CT abdomen and pelvis demonstrated possible colitis. The patient was admitted. The patient was then planned for an MRCP; however, he developed acute hypotension and acute mental status change while down for the MRI. He was given IV fluids without significant improvement in the blood pressure. He was admitted to the ICU and started on vasopressin and Levophed. Overnight, labs have been quite significant for rising INR to 19.19! He was given Kcentra with improvement in the INR to the 2-3 range. He was noted to have rising enzymes with an ALT up to 3984 and an AST to 3147 and bilirubin up to 5.8 with 3.5 being direct. He also has a rising lactic acid, rising creatinine up to 3.6, and lactic acid of 10.5. He has been acidotic with a pH of 7.28 on an ABG and bicarb of 11. He has also had increased issues from a pulmonary standpoint and has been placed on nasal BiPAP. Repeat CT abdomen and pelvis was performed early this morning, which demonstrated minimal right pleural effusion and trace left pleural effusion. Trace peritoneal ascites noted, wall thickening of the gastric antrum and pylorus, as well as nonspecific pancolitis noted. REVIEW OF SYSTEMS: The patient reports feeling weak and fatigued. He is short of breath. He denies any confusion at present time. He does say that he has been having some diarrhea since this morning. PAST MEDICAL HISTORY: Notable for CLL, on chemotherapy. Also notable for hypertension, hyperlipidemia, asthma, and BPH. PAST SURGICAL HISTORY: Cataract surgery and nasal polypectomy. OUTPATIENT MEDICATIONS: Include: 1. Albuterol. 2. Aspirin. 3. Atorvastatin. 4. Budesonide and formoterol. 5. Folic acid. 6. Losartan. 7. Multivitamins. 8. Omeprazole. 9. Tamsulosin. 10. His chemotherapy regimen. FAMILY HISTORY: No known GI or liver disease. SOCIAL HISTORY: No drugs, alcohol, or tobacco. PHYSICAL EXAM: Vital Signs: 98.2; blood pressure 124/58, on pressors; heart rate 95; 97% on oxygen supplementation. Chronically ill-appearing gentleman, appears short of breath. HEENT: Mucous membranes moist. Cardiovascular: Tachycardic. Pulm: Moving decent air. Increased respiratory rate. Abdomen: Distended, but no significant tenderness. Extremities: No edema. Cool. Neuro: A and O x3. Does not appear to be overtly encephalopathic. DIAGNOSTIC STUDIES/LAB DATA: Labs reviewed in HPI. Most recent set of labs indicates a normal white count; hemoglobin of 11.3 and hematocrit of 35; platelet count dropping, now 39. INR was 19.19, now down to 2.36. ABG with a pH of 7.28. Sodium was 134, now 137; potassium 5.1; bicarb between 11 and 13; creatinine now up to 3.61; lactic acid now up to 10.5; phos is 5.9. Bilirubin 5.4 with a direct of 3.3; AST now 2719, which is down a bit from earlier; ALT is 3475; alk phos is 160. Troponin is elevated to 1.57. Albumin is low at 2.5. Imaging: CT abdomen and pelvis from 06/21/18 and 06/22/18 summarized in the HPI. The patient noted to have some nonspecific pancolitis and also antral thickening. IMPRESSION AND RECOMMENDATIONS: Mr. Porter is a pleasant 83-year-old gentleman with a complicated history including chronic lymphocytic leukemia, on current chemotherapy with bendamustine and rituximab, who is admitted initially with several complaints including nausea, vomiting and episode of altered mental status, which has since resolved. His hospital course has been notable for acute worsening of his hypotension requiring pressors and very significantly abnormal labs including a metabolic acidosis, elevated lactate, very elevated transaminase levels, elevated bilirubin, exceedingly elevated INR , elevated creatinine, and elevated troponin. Additionally, the patient is now requiring increased supplemental oxygen. At this point, it does appear that Mr. Porter is in some degree of liver failure based on his significantly elevated LFTs and elevated INR. He has had some episodes of altered mentation, although his mentation at the time of interview is essentially normal. Given the presentation with very elevated transaminase levels and hypotension requiring pressors, I am inclined to suspect that the patient has shock liver or ischemia, which has led to more of an acute liver failure presentation. The etiology of the hypotension remains a bit of a mystery. It is possible that one of his chemotherapy medications could also have precipitated the liver injury. Infectious etiologies for acute liver injury also considered, particularly given immunocompromised condition. Patient is not a transplant candidate given advanced age and cancer. 1. Would recommend continuing to closely monitor comprehensive panel, INR, phosphorus level, and glucose level on BID-QD basis. Of note, hypophosphatemia can be associated with increased liver regeneration and improved prognosis, so this can be helpful to follow from prognostic standpoint. However, it may be a bit difficult to interpret the patient's phosphorus as he is also in renal failure. 2. Would recommend NAC given acute liver failure. There has been some evidence to suggest that this might helpful even in cases of non-Tylenol liver failure where patient is not transplant candidate. 3. Would recommend checking HSV and CMV PCR as well as ensuring that acute hep A IgM has been sent. Hepatitis B studies also recommended given rituximab as this can be associated with hep B reactivation. However, it seems that the patient has had negative hepatitis B studies in the past making this very unlikely. 4. Would collect stool sample and send for stool studies given some concern for septic and infectious cause of the shock picture. Colitis was seen on imaging, although this may be related to ischemia at this point. 5. Agree with plan for Radiology to consider aspiration of the gallbladder as the gallbladder did appear to be abnormal, and infection is on our differential for the cause of the patient's shock. 6. Continue with supportive care. The patient's primary team and oncologist have been speaking with the patient about the overall poor prognosis. The patient's family and the patient are considering change in goals of care, particularly if he continues to worsen in the near future. GI will continue to follow. Please contact with any questions. [id number]/[facility] #: [id number] JOANNA
[2018-06-22] MEDS ORDERED: Morphine PCA 5 MG/ML * Titrate per Protocol PCA SCH (20:45)
[2018-06-22] MEDS ORDERED: Morphine VIAL* 4 MG/ML VIAL (1 ml vial) IV ONE (20:45)
[2018-06-22] MEDS ORDERED: LORazepam INJ* 2 MG/ML 1 ML VIAL IV PUSH PRN (20:45)
[2018-06-22 23:33] VITALS: BP 59/36
--- NOTE | 2018-06-22 23:45 | PN ---
Hospitalist Progress Note Date of Service: 06/21/18 - duplicated open accidently
--- NOTE | 2018-06-23 08:47 | DS ---
Discharge Summary Date of Admission: 06/21/18 Date of Discharge: 06/22/18 Attending Physician: Jae Martin PCP: Neal Bain Admission Diagnosis: Syncope Discharge Diagnosis: Acute liver failure acute renal failure coagulopathy shock Secondary Diagnoses: Chronic Lymphocytic leukemia Consultations: Nephrology, Gastroenterology, Oncology, Critical Care Procedures: CARROLL Antunezdiana 06/21/18 IMPRESSION: THE HETEROGENEOUS GALLBLADDER APPEARS TO BE CONTRACTED AND EXHIBITING WALL THICKENING UP TO 1 CM WITH PERICHOLECYSTIC FLUID. THERE IS POTENTIALLY ECHOGENIC MATERIAL IN THE GALLBLADDER FUNDUS WHICH COULD BE AIR. THE PATIENT IS EXHIBITING CLINICAL SIGNS OF CHOLECYSTITIS FURTHER CHARACTERIZATION CAN BE MADE WITH CONTRAST-ENHANCED CT OF THE ABDOMEN AND PELVIS WITH ORAL CONTRAST. CT abd/pel 06/21/18 IMPRESSION: Wall thickening of the transverse and ascending colon, findings concerning for colitis. Etiology infectious/inflammatory. Significant decrease in the abdominal lymphadenopathy. Most lymph nodes measuring less than [address] abd/pel 06/21/18 IMPRESSION: 1. Minimal right pleural effusion and trace left pleural effusion which are new or increased since 06/21/2018. There is trace pericardial effusion which is similar to slightly increased. 2. Trace peritoneal ascites which is slightly increased. 3. Wall thickening of the gastric antrum and pylorus which is similar to the prior study and may reflect antral gastritis or PUD. 4. Nonspecific pancolitis, greatest proximally which is similar to the prior study. 5. Contracted gallbladder with wall thickening and mild internal density which may reflect sludge or small faint stones and is similar to the prior study. 6. Induration of the central mesentery and mesenteric root which is mildly increased overall. Findings may reflect increasing generalized anasarca or fluid overload. HPI: 83M with htn, hld, asthma, bph, CLL with recent chemotherapy with bendamustine/ rituximab presents with weakness. The patient was found to have abnormal lfts in the thousands range. He was admitted to the floor and a rapid response was called for ams and hypotension. The patient was transferred to the ICU. He was started on abx and iv fluids. He reports some abdmominal discomfort and had nausea prior to admission. The patient denies fever or chills. A escoto was placed with minimal urine output. Lactate was progressively increasing. His INR increased to 18 and he became hypoglycemic. He was placed on levophed for bp support. Brief Hospital Course: The patient was admitted to the ICU. He progressively decompensated despite aggressive medical care. The patient's family requested to withdraw care and the patient at 2350 on 06/22/18. Pending Lab or Test Results: Gallbladder fluid culture Discharge Disposition: Diet: N/A Discharge Medications: N/A Discharge Instructions: N/A Follow-up Appointments: N/A CC: Neal Bain
[2018-06-23 10:39] LABS: Hepatitis C Antibody Nonreactive (Nonreactive)
[2018-06-23 11:04] LABS: Hepatitis B Surface Antigen Reactive (Prelim) (Nonreactive)
[2018-06-24 11:24] LABS: Hepatitis B Surface AG Positive (Negative)
== END 2018-06-22 23:50 | disposition expired | DRG 441 ==
LOC: ED 14:19 → MEDTELE 18:19 → ICU 22:04
PROVIDERS: ADMIT Internal Medicine Hematology & Oncology; ATTEND Internal Medicine
PROC: 3E033XZ Introduction of Vasopressor into Peripheral Vein, Percutaneous Approach (ICD-10-PCS; principal; 2018-06-22)
PROC: 30283B1 Transfusion of Nonautologous 4-Factor Prothrombin Complex Concentrate into Vein, Percutaneous Approach (ICD-10-PCS; 2018-06-22)
PROC: 0F943ZX Drainage of Gallbladder, Percutaneous Approach, Diagnostic (ICD-10-PCS; 2018-06-22)
PROC: 02HV33Z Insertion of Infusion Device into Superior Vena Cava, Percutaneous Approach (ICD-10-PCS; 2018-06-22)
PROC: 30233M1 Transfusion of Nonautologous Plasma Cryoprecipitate into Peripheral Vein, Percutaneous Approach (ICD-10-PCS; 2018-06-22)
DX: K72.00 Acute and subacute hepatic failure without coma (principal); J96.90 Respiratory failure, unspecified, unspecified whether with hypoxia or hypercapnia; N17.0 Acute kidney failure with tubular necrosis; C91.10 Chronic lymphocytic leukemia of B-cell type not having achieved remission; R18.8 Other ascites; J90 Pleural effusion, not elsewhere classified; K51.00 Ulcerative (chronic) pancolitis without complications; N17.9 Acute kidney failure, unspecified; E87.2 Acidosis; R57.1 Hypovolemic shock; E11.65 Type 2 diabetes mellitus with hyperglycemia; E78.5 Hyperlipidemia, unspecified; I10 Essential (primary) hypertension; E80.6 Other disorders of bilirubin metabolism; R74.8 Abnormal levels of other serum enzymes; J45.909 Unspecified asthma, uncomplicated; N40.0 Benign prostatic hyperplasia without lower urinary tract symptoms; K59.00 Constipation, unspecified; E83.39 Other disorders of phosphorus metabolism; Z66 Do not resuscitate; Z92.21 Personal history of antineoplastic chemotherapy; Z87.01 Personal history of pneumonia (recurrent); Z85.820 Personal history of malignant melanoma of skin; Z86.010 Personal history of colon polyps; Z82.49 Family history of ischemic heart disease and other diseases of the circulatory system; Z98.42 Cataract extraction status, left eye; Z98.41 Cataract extraction status, right eye; Z99.81 Dependence on supplemental oxygen
CPT/HCPCS: 36415; 36600; 49406; 71045; 74176; 76705; 80048; 80053; 80076; 81003; 81015; 82150; 82247; 82248; 82550; 82803; 82947; 83605; 83690; 83735; 84100; 84443; 84484; 85025; 85049; 85060; 85362; 85384; 85610; 85730; 86709; 86803; 86850; 86900; 86901; 86922; 86927; 87040; 87070; 87086; 87205; 87340; 87641; 93005; 93306; 94640; 94660; 99222; 99233; 99285; A9270-GY; C9132; J0132; J1720; J2270; J2543; J3010; J3370; J3430; J7060; P9017; P9047